=== PATIENT | female | born 1945 | race Caucasian/White ===

== ENCOUNTER → 2016-04-11 | Outpatient (CLI) | payer MEDICARE ==
--- NOTE | 2016-04-12 10:58 | MM ---
Reason for exam: screening (asymptomatic). Last mammogram was performed 1 year and 10 months ago. History: Patient is postmenopausal. Benign US breast aspiration single LT of the left breast, June 16, 2014. Took estrogen for 15 years. Physical Findings: A clinical breast exam by your physician is recommended on an annual basis and results should be correlated with mammographic findings. MG 3D Screening Mammo W/Cad Bilateral CC and MLO view(s) were taken. Prior study comparison: June 16, 2014, left breast MG diagnostic mammo LT wo CAD. March 19, 2014, bilateral MG diagnostic mammo w CAD HÉCTOR. The breast tissue is heterogeneously dense. This may lower the sensitivity of mammography. No significant changes when compared with prior studies. ASSESSMENT: Negative, BI-RAD 1 RECOMMENDATION: Routine screening mammogram of both breasts in 1 year.
== END | disposition home or self-care (01) ==
LOC: RADMAMWWP 11:24
PROVIDERS: ATTEND Internal Medicine
DX: Z12.31 Encounter for screening mammogram for malignant neoplasm of breast (principal)
CPT/HCPCS: 77052; 77063; G0202

== ENCOUNTER → 2019-01-15 | Outpatient (CLI) | payer MEDICARE ==
--- NOTE | 2019-01-15 13:05 | CT ---
EXAMINATION TYPE: CT wrist RT wo con DATE OF EXAM: 01/15/2019 COMPARISON: No outside images or priors are available for comparison. HISTORY: Known displaced fracture of the right ulna CT DLP: 263 mGycm Automated exposure control for dose reduction was used. Standard unenhanced CT of the right wrist was performed in the axial plane with sagittal and coronal reconstructions. Three-D reconstructed images of the osseous structures with graded at a separate workstation for review. FINDINGS: There is an apex volar angulated, comminuted, intra-articular, impacted fracture of the distal right radius with up to 5 mm foreshortening and up to 1.3 cm dorsal displacement of the distal fracture fra gment. Intra-articular extension is seen into the radiocarpal joint at multiple locations given the c omminution. There is extensive overlying soft tissue swelling and punctate foci of subcutaneous emphy sema are also seen. There is a transversely oriented fracture of the ulnar styloid process with 1 mm of diastases of the fracture. There is no widening of the scapholunate joint. Carpal carpal interspac es are maintained. No acute fracture seen of the carpal bones. No acute fracture of the proximal meta carpals. Mild degenerative changes of the first metacarpal phalangeal joint displayed as joint space narrowing, opposing surface sclerosis and osseous proliferation. Evaluation of the ligaments and tend ons are limited on CT and further limited given lack of intravenous contrast as well as further limit ed given soft tissue swelling. IMPRESSION: 1. ACUTE, COMMINUTED, IMPACTED, APEX VOLAR ANGULATED, MULTIFOCAL INTRA-ARTICULAR FRACTURE OF THE DIST AL RIGHT RADIUS WITH MINIMAL FORESHORTENING. PUNCTATE FOCI OF SUBCUTANEOUS EMPHYSEMA ARE ALSO SEEN CO ULD BE INTRODUCED BY LACERATION, INTRAVENOUS INJECTION OR MUCH LESS LIKELY INFECTION. 2. ACUTE, TRANSVERSELY ORIENTED, MINIMALLY DIASTATIC FRACTURE OF THE ULNAR STYLOID PROCESS. 3. DIFFUSE SOFT TISSUE SWELLING OF THE RIGHT WRIST.
== END | disposition home or self-care (01) ==
LOC: RADCTMAIN 12:08
PROVIDERS: ATTEND Orthopaedic Surgery
DX: S52.571A Other intraarticular fracture of lower end of right radius, initial encounter for closed fracture (principal)

== ENCOUNTER → 2019-01-22 | Outpatient (CLI) | payer MEDICARE | END | disposition home or self-care (01) | LOC: LABPAT 14:05 | PROVIDERS: ATTEND Orthopaedic Surgery | DX: Z01.818 Encounter for other preprocedural examination (principal) | CPT/HCPCS: 93005 ==

== ENCOUNTER 2019-01-23 11:50 | Day surgery (SDC) | payer MEDICARE ==
[2019-01-21 16:34] VITALS: BMI 28.8
[~2019-01-23 11:50] MED LIST: DEXAMETHASONE SOD PHOSPHATE 10 MG/ML 1 ML VIAL IV ONE; HYDROmorphone 0.5 MG/0.5 ML SYRINGE IVP PRN; LACTATED RINGERS 1,000 ML IV SCH; LIDOCAINE 1% 20 ML VIAL (10MG/ML) FOR IV START INTRADERMA PRN; MIDAZOLAM 2 MG/2 ML VIAL IV PRN; ONDANSETRON 4 MG/2 ML VIAL IVP ONE; SCOPOLAMINE 1.5MG/72HR PATCH TRANSDERM ONE
[2019-01-23 13:20] LABS: Glucose,Whole Blood 113 mg/dL (75-99)
[2019-01-23 13:21] VITALS: TEMP 98.8
[2019-01-23] MEDS ORDERED: MIDAZOLAM 2 MG/2 ML VIAL IVP ONE (14:02)
--- NOTE | 2019-01-23 15:32 | P.ANPRN ---
Procedure Note - Anesthesia - Nerve Block Performed Right Supraclavicular Single Time Out Performed: Yes Date of Procedure: 01/23/19 Procedure Start Time: 14:01 Procedure Stop Time: 14:08 Location of Patient Procedure: PreOp Indication: Acute Post-Operative Pain, Requested by Surgeon Sedation Type: Sedate with meaningful contact maintained Preparation: Sterile Prep Position: Supine Needle Types: Pajunk Needle Gauge: 21 Ultrasound used to visualize needle placement: Yes Ultrasound used to observe medication spread: Yes Blood Aspirated: No Pain Paresthesia on Injection Noted: No Resistance on Injection: Normal Image Stored and Saved: Yes Events: Uneventful and Well Tolerated (ropi .5% 25cc plus dexamethasone 4mg)
[2019-01-23] MEDS ORDERED: MIDAZOLAM 2 MG/2 ML VIAL ONE (16:20)
[2019-01-23] MEDS ORDERED: LIDOCAINE 1% INJ 10MG/ML (20 ML MDV) ONE (16:20)
[2019-01-23] MEDS ORDERED: DEXAMETHASONE SOD PHOSPHATE 4 MG/ML 1 ML VIAL ONE (16:20)
[2019-01-23] MEDS ORDERED: SUCCINYLCHOLINE CHLORIDE 100 MG/5 ML SYR IV ONE (16:20)
[2019-01-23] MEDS ORDERED: PROPOFOL 10 MG/ML 20 ML VIAL IV ONE (16:20)
[2019-01-23] MEDS ORDERED: fentaNYL (PF) 50 MCG/ML 2 ML AMP ONE (16:20)
[2019-01-23] MEDS ORDERED: LIDOCAINE 1%-EPI 1:100,000 20 ML VIAL SQ ONE ×2 (17:29→18:20)
[2019-01-23] MEDS ORDERED: ROPIVACAINE 5MG/ML 20ML VIAL MISCELLANE ONE ×2 (17:29→18:20)
[2019-01-23] MEDS ORDERED: LACTATED RINGERS 1,000 ML IV ONE (18:21)
[2019-01-23 19:00] LABS: Glucose,Whole Blood 171 mg/dL (75-99)
[2019-01-23 19:17] VITALS: RESP 16
[2019-01-23] MEDS ORDERED: HYDROcodone/APAP 5-325MG 1 EACH TAB PO ONE (19:20)
[2019-01-23 19:41] VITALS: BP 165/85; PULSE 75
--- NOTE | 2019-01-24 07:18 | XR ---
Fluoroscopy History: Fracture Fracture. Hardware placement. RT wrist. 6 IM scanned. 70.4 sec FL.
--- NOTE | 2019-01-26 16:23 | P.OP ---
Date of Procedure: 01/23/19 Preoperative Diagnosis: Displaced, comminuted intra-articular right distal radius fracture Postoperative Diagnosis: Displaced, comminuted intra-articular right distal radius fracture Procedure(s) Performed: Open reduction and internal fixation of comminuted, intra-articular right distal radius fracture (greater than 3 parts) Implants: Arthrex dorsal spanning distal radius plate and cortical screws Anesthesia: GETA, regional, local Surgeon: Emily Swift Estimated Blood Loss (ml): 5 Condition: stable Disposition: PACU Indications for Procedure: The patient is a very pleasant 73-year-old female who sustained a complex, comminuted intra-articular right distal radius fracture after mechanical fall. A CT scan was performed which showed substantial comminution with very little subchondral bone to support direct fragment fixation. Treatment options (and associated risks and benefits) were discussed in the office. Surgical treatment was recommended, specifically in the form of bridge plating. We discussed in detail the risk of of tendon injury, adhesions and loss of motion as well as the need for a secondary surgery for hardware removal and possible lysis of adhesions. She expressed understanding and willingness to accept these risks and wished to proceed with surgery. In preop, the patient denied any additional questions or concerns. Consent forms were signed. The operative site was confirmed and marked. Description of Procedure: The patient was administered a regional nerve block by the anesthesia team and then brought to the operating suite. The patient was positioned supine with the operative limb on an arm board. All bony prominences were well-padded. General anesthesia was administered uneventfully. Prophylactic IV antibiotics were administered. A tourniquet was placed on the right arm, which was then prepped and draped in standard, sterile fashion. A timeout was performed, confirming patient identifiers, the operative side, the site and the procedure to be performed. All team members expressed agreement. The fracture was initially evaluated with intraoperative fluoroscopy. Multiple fracture fragments were again noted with fracture lines extending into the DRUJ and radiocarpal joints. Manual reduction maneuver was performed utilizing combination of axial traction, ulnar deviation and palmar translation. Good initial alignment was obtained. The amount of subchondral bone still felt to be inadequate to permit direct fragment fixation and the decision was made to proceed with dorsal spanning fixation. The plate was positioned on the skin and used as a template to emily the proximal and distal incision sites. The limb was exsanguinated with an Esmarch and the tourniquet was inflated. A longitudinal incision was made between the second and third metacarpal shafts. Blunt spreading dissection was used. Small superficial sensory branches were identified, mobilized and protected. The extensor tendons were mobilized to expose the dorsal surface of the second metacarpal shaft. A second longitudinal incision was made on the dorsal aspect of the distal forearm. Spreading dissection was utilized. A branch of the superficial radial sensory nerve was identified, mobilized and protected. The interval between the brachioradialis and extensor carpi radialis longus tendon was developed to expose the radial shaft. A [place] elevator was inserted through the distal wound and passed deep to the extensor tendons, creating a path for the plate. The dorsal comminution and some residual extension deformity made passing this across the fracture site difficult. The reduction maneuver was repeated. With the fracture held reduced, a 0.062 K wire was inserted percutaneously into the radial styloid and driven across the fracture site. Wire position and fracture reduction were confirmed on imaging. The [place] was again inserted and passed easily over the dorsal capsule and across the fracture site to the dorsal radial shaft. The plate was inserted distally and passed in a similar fashion. Passive flexion and extension of the thumb and fingers showed no tethering or restriction of tendon gliding. The plate was clamped to the radius proximally. Distally, the plate was placed over the second metacarpal shaft. Position was confirmed on imaging. A cortical screw was drilled, measured and inserted to secure the plate to the metacarpal. Some residual extension deformity remained. The percutaneous K wire was backed out and the fracture was re-reduced, improving both radial inclination and volar tilt. The wire was readvanced for provisional fixation. Plate position and fracture reduction were again confirmed on imaging. Three cortical screws were drilled, measured and inserted to secure the plate to the radial shaft. Two additional screws were drilled, measured and inserted to further secure the plate to the metacarpal. Final x-rays were obtained which revealed satisfactory reduction of the fracture. The wrist was then stressed under live fluoroscopy - the fixation construct showed excellent stability with no appreciable motion of the fracture fragments. The tourniquet was released after 62 minutes at 250 mmHg. Good hemostasis was obtained with held pressure. The wound was thoroughly irrigated with normal saline. The periosteum was repaired over the plate proximally with interrupted Vicryl sutures. The subcutaneous tissues of the proximal incision were reapproximated with interrupted 3-0 Vicryl sutures. The incision was closed with a running 4-0 nylon suture. The incision in the hand was closed with a running 5-0 nylon suture. Local anesthetic with epinephrine was injected into the perioperative subcutaneous tissues for adjunctive postoperative pain control and hemostasis. A soft, sterile dressing was applied. All sponge, needle and instr ument counts were correct at the end of the case. The patient tolerated the procedure well and was taken to the recovery room in stable condition.
== END 2019-01-23 19:58 | disposition home or self-care (01) ==
LOC: OR 11:50
PROVIDERS: ATTEND Orthopaedic Surgery
DX: S52.571A Other intraarticular fracture of lower end of right radius, initial encounter for closed fracture (principal); W10.9XXA Fall (on) (from) unspecified stairs and steps, initial encounter; M19.90 Unspecified osteoarthritis, unspecified site; I10 Essential (primary) hypertension; K21.9 Gastro-esophageal reflux disease without esophagitis; G25.81 Restless legs syndrome; E11.9 Type 2 diabetes mellitus without complications; H91.90 Unspecified hearing loss, unspecified ear; J45.909 Unspecified asthma, uncomplicated; Z87.891 Personal history of nicotine dependence; Z97.3 Presence of spectacles and contact lenses; Z97.2 Presence of dental prosthetic device (complete) (partial); Z83.3 Family history of diabetes mellitus; Z82.49 Family history of ischemic heart disease and other diseases of the circulatory system; Z90.710 Acquired absence of both cervix and uterus; Z79.84 Long term (current) use of oral hypoglycemic drugs; Z79.891 Long term (current) use of opiate analgesic; Z79.899 Other long term (current) drug therapy; Z88.1 Allergy status to other antibiotic agents; Z88.5 Allergy status to narcotic agent; Z88.8 Allergy status to other drugs, medicaments and biological substances
CPT/HCPCS: 25609; 64415; 76942; 73100; C1713; J2250; J1100 ×2; J0690; J2405; J2001; J3010; J0330; J2704; J2795; 64413

== ENCOUNTER → 2019-03-11 | Outpatient (CLI) | payer MEDICARE ==
--- NOTE | 2019-03-12 09:08 | MM ---
Reason for exam: screening (asymptomatic). Last mammogram was performed 2 years and 11 months ago. History: Patient is postmenopausal. Benign US breast aspiration single LT of the left breast, June 16, 2014. Took estrogen for 15 years. Physical Findings: A clinical breast exam by your physician is recommended on an annual basis and results should be correlated with mammographic findings. MG 3D Screening Mammo W/Cad Bilateral CC and MLO view(s) were taken. Prior study comparison: April 11, 2016, bilateral MG 3d screening mammo w/cad. June 16, 2014, left breast MG diagnostic mammo LT wo CAD. The breast tissue is heterogeneously dense. This may lower the sensitivity of mammography. Benign appearing bilateral calcifications. Previous mammotome biopsy in the left breast. No significant changes when compared with prior studies. ASSESSMENT: Benign, BI-RAD 2 RECOMMENDATION: Routine screening mammogram of both breasts in 1 year.
== END | disposition home or self-care (01) ==
LOC: RADMAMWWP 12:38
PROVIDERS: ATTEND Internal Medicine
DX: Z12.31 Encounter for screening mammogram for malignant neoplasm of breast (principal)
CPT/HCPCS: 77063; 77067

== ENCOUNTER → 2019-03-14 | Outpatient (CLI) | payer MEDICARE ==
--- NOTE | 2019-03-14 15:44 | CT ---
EXAMINATION TYPE: CT wrist RT wo con DATE OF EXAM: 03/14/2019 COMPARISON: Prior CT wrist 01/15/2019 HISTORY: Rt wrist pain, post op complication CT DLP: 185.1 mGycm Automated exposure control for dose reduction was used. Helical imaging through the wrist, coronal an d sagittal reconstructions. FINDINGS: Comminuted distal radial fracture with displaced intra-articular fragments again noted. Nonunion of u lnar styloid fracture which is also displaced. Underlying osteoarthritic changes are present. There i s posterior fixation bracket in place, screws within the second metacarpal are not associated with th e posterior bracket. The proximal screws within the radius are in place. Screw tracts are noted withi n the second metacarpal. There is an overlying splint. There is soft tissue swelling present. Impression: DISTAL SCREWS ARE NOT WITHIN THE POSTERIOR FIXATION BRACKET.
== END | disposition home or self-care (01) ==
LOC: RADCTMAIN 13:12
PROVIDERS: ATTEND Orthopaedic Surgery
DX: S52.571D Other intraarticular fracture of lower end of right radius, subsequent encounter for closed fracture with routine healing (principal); S52.611D Displaced fracture of right ulna styloid process, subsequent encounter for closed fracture with routine healing; T81.30XA Disruption of wound, unspecified, initial encounter; Z48.89 Encounter for other specified surgical aftercare; Z98.890 Other specified postprocedural states

== ENCOUNTER 2019-03-26 05:43 | Day surgery (SDC) | payer MEDICARE ==
[2019-03-25 08:40] VITALS: BMI 28.7
[~2019-03-26 05:43] MED LIST changes: -MIDAZOLAM 2 MG/2 ML VIAL IV PRN; -SCOPOLAMINE 1.5MG/72HR PATCH TRANSDERM ONE
[2019-03-26] MEDS ORDERED: LACTATED RINGERS 1,000 ML IV ONE ×2 (06:05→09:26)
[2019-03-26 06:14] LABS: Glucose,Whole Blood 110 mg/dL (75-99)
[2019-03-26] MEDS ORDERED: LIDOCAINE 1%-EPI 1:100,000 20 ML VIAL SQ ONE ×3 (07:32→08:01)
[2019-03-26] MEDS ORDERED: ROPIVACAINE 5 MG/ML 30 ML VIAL MISCELLANE ONE ×3 (07:32→08:01)
[2019-03-26] MEDS ORDERED: SUCCINYLCHOLINE CHLORIDE 100 MG/5 ML SYR IV ONE (07:38)
[2019-03-26] MEDS ORDERED: LIDOCAINE 1% INJ 10MG/ML (20 ML MDV) ONE (07:38)
[2019-03-26] MEDS ORDERED: MIDAZOLAM 2 MG/2 ML VIAL ONE (07:38)
[2019-03-26] MEDS ORDERED: ePHEDrine SULFATE/0.9% NACL/PF 50 MG/5 ML SYRINGE IV ONE (07:38)
[2019-03-26] MEDS ORDERED: fentaNYL (PF) 50 MCG/ML 2 ML AMP ONE (07:38)
[2019-03-26] MEDS ORDERED: PROPOFOL 10 MG/ML 20 ML VIAL IV ONE (07:38)
--- NOTE | 2019-03-26 09:50 | FL ---
EXAMINATION TYPE: FL guidance operating room, XR wrist limited RT DATE OF EXAM: 03/26/2019 CLINICAL HISTORY: Right wrist fracture. TECHNIQUE: Fluoroscopy. Limited intraoperative views right wrist. COMPARISON: Recent CT March 14, 2019. FINDINGS: Fluoroscopic guidance was provided during hardware removal procedure performed by Dr. Chon munoz. A total of 0.5 minute of fluoroscopic time was utilized during the procedure and 7 spot intr aoperative images are provided which show interval removal of long segment fixating hardware. IMPRESSION: As Above.
[2019-03-26 10:08] VITALS: TEMP 98
[2019-03-26 10:20] LABS: Glucose,Whole Blood 190 mg/dL (75-99)
[2019-03-26 11:17] VITALS: BP 143/72; PULSE 92; RESP 16
--- NOTE | 2019-03-27 15:27 | P.OP ---
Date of Procedure: 03/26/19 Preoperative Diagnosis: 1. Hardware failure status post open reduction and internal fixation of comminuted right distal radius fracture with dorsal spanning plate Postoperative Diagnosis: 1. Hardware failure status post open reduction and internal fixation of comminuted right distal radius fracture with dorsal spanning plate 2. Partial attritional ruptures of the right extensor indicis proprius (EIP) and index finger extensor digitorum communis (EDC) tendons Procedure(s) Performed: 1. Exam under anesthesia and manual application of joint stress for radiography by physician right wrist 2. Removal of hardware - right hand and wrist 3. Repair of right extensor indicis proprius (EIP) and index finger extensor digitorum communis (EDC) tendons - distal Zone 6 4. Application of short arm splint by physician Anesthesia: NIKITA, local Surgeon: Vinay Swift Estimated Blood Loss (ml): 5 Pathology: other (Wound culture swab) Condition: stable Disposition: PACU Indications for Procedure: The patient is a very pleasant 73-year-old female who previously underwent dorsal spanning plate fixation for a comminuted right distal radius fracture. Follow-up x-rays in the office demonstrated failure of fixation: the distal screws holding the plate to the second metacarpal head completely pulled out. In preop, the patient expressed that she thought the hardware failure was likely the result of overuse, stating: Its my own fault: I probably used it too much. Treatment options (and associated risks and benefits) were discussed in the office. Surgical treatment was recommended. She expressed understanding, acceptance of the risks and wished to proceed with surgery. Consent forms were signed. The operative site was confirmed and marked. Description of Procedure: The patient was brought to the operative suite and positioned supine with the operative limb on a hand table. Prophylactic antibiotics were administered. A tourniquet was applied to the right upper extremity, which was then prepped and draped in standard, sterile fashion. A time-out was performed, confirming patient identifiers, the operative side, site and procedure to be performed: all team members expressed agreement. The wrist was examined with intraoperative fluoroscopy. All three distal screws were sitting loosen in the soft tissues. The proximal screws were still fixed to the bone through the plate. The wrist was taken through a passive range of motion under live fluoroscopy: No gross motion was identified at the fracture site. The decision was made to proceed with hardware removal. The limb was exsanguinated with an Esmarch and the tourniquet was inflated. The previous incisions were utilized. The skin was sharply incised along the dorsal forearm. Spreading dissection was used to expose the dorsal radius, taking care to protect adjacent vessels and sensory branches. The plate was identified by palpation. The fibrous membrane covering the plate was incised to expose the screw heads. All three screws were still well-fixed and were removed without difficulty. The incision in the hand had a keratotic eschar along its distal third. This was sharply excised in elliptical fashion, removing a 4 mm x 10 mm full- thickness segment of skin. The subcutaneous tissues were spread. The index EDC and EIP tendons were identified and mobilized. The showed fraying and attritional ruptures from hardware irritation. These were later repaired. There was abundant thick, fibrous tissue over the second metacarpal, consistent with chronic irritation. The metacarpal shaft was identified by palpation. The overlying tissue was incised to expose the shaft. A small pocket of thin, markham fluid was encountered, likely reactive inflammatory transudate from the irritating hardware. This did not appear infected but a culture swab was obtain ed. All three distal screws were encased in thick fibrous tissue. These were localized with fluoroscopy, dissected free and removed without difficulty. An elevator was used to carefully release adhesions between the plate and the bone, proximally and distally. The plate was removed through the proximal wound without difficulty. Curettes and rongeurs were used to resect fibrous scar tissue from the dorsal surface of the radius and second metacarpal. Both wounds were copiously irrigated with normal saline. Dynamic fluoroscopic examination was repeated after hardware removal. Again, no gross motion of the fracture fragments was appreciated. However, subtle motion was noted at the volar rim when axial load and volar translation/flexion stress were applied. The distal radius was deemed stable and sufficiently healed - no further fixation was deemed necessary. Attention was turned to the tendon ruptures. The radial side of the extensor expansion was released to facilitate exposure. The radial side of EDC tendon showed a tear involving 30% of the tendon circumference with loss of tendon substance over a length of about 2 cm. This was not felt to be repairable. The EIP tendon showed substantial partial- thickness undersurface fraying. Both tendons showed good overall strength: The index finger passively extended when traction was applied to each tendon using a Ragnell retractor. The frayed edges of each tendon were sharply resected. A longitudinal split along the radial side of the EDC tendon was repaired in a [id number] fashion, using multiple interrupted [id number] sutures of 6-0 nylon. The loose flaps on the undersurface of the EIP tendon were repaired with horizontal mattress sutures of 6-0 nylon. This was reinforced along both sides with a running, locked 6-0 nylon stitch. The split in the extensor expansion was repaired with 3-0 Vicryl suture. Passive flexion and extension of the digit showed smooth gliding of both tendons without catching or loosening at the repair sites. The tourniquet was released after 74 minutes at 250 mmHg. Hemostasis was obtained with manual pressure and electrocautery. The wounds were thoroughly irrigated with normal saline. The subcutaneous tissues on the proximal wound were reapproximated with interrupted 3-0 Vicryl sutures. The incisions were closed with 4-0 nylon suture. Local anesthetic with epinephrine was injected for adjunctive postoperative analgesia and hemostasis. A soft, sterile dressing was applied. To protect both the healing fracture and tendon repairs, a short arm volar plaster splint was applied, with the wrist in 20 of extension and the MCP and PIP joints free. All sponge, needle and instrument counts were correct at the end of the case. The patient tolerated the procedure well and was taken to the recovery room in stable condition.
== END 2019-03-26 11:46 | disposition home or self-care (01) ==
LOC: OR 05:43
PROVIDERS: ATTEND Orthopaedic Surgery
DX: T84.428A Displacement of other internal orthopedic devices, implants and grafts, initial encounter (principal); T84.84XD Pain due to internal orthopedic prosthetic devices, implants and grafts, subsequent encounter; S52.571D Other intraarticular fracture of lower end of right radius, subsequent encounter for closed fracture with routine healing; S52.611D Displaced fracture of right ulna styloid process, subsequent encounter for closed fracture with routine healing; S56.511A Strain of other extensor muscle, fascia and tendon at forearm level, right arm, initial encounter; M19.90 Unspecified osteoarthritis, unspecified site; I10 Essential (primary) hypertension; H91.90 Unspecified hearing loss, unspecified ear; J45.909 Unspecified asthma, uncomplicated; K21.9 Gastro-esophageal reflux disease without esophagitis; E11.9 Type 2 diabetes mellitus without complications; G43.909 Migraine, unspecified, not intractable, without status migrainosus; G25.81 Restless legs syndrome; Z88.5 Allergy status to narcotic agent; Z88.1 Allergy status to other antibiotic agents; Z88.8 Allergy status to other drugs, medicaments and biological substances; Z79.84 Long term (current) use of oral hypoglycemic drugs; Z79.891 Long term (current) use of opiate analgesic; Z79.2 Long term (current) use of antibiotics; Z79.899 Other long term (current) drug therapy; Z87.891 Personal history of nicotine dependence; Z96.649 Presence of unspecified artificial hip joint; Z86.011 Personal history of benign neoplasm of the brain; X58.XXXA Exposure to other specified factors, initial encounter; X58.XXXD Exposure to other specified factors, subsequent encounter; Y83.1 Surgical operation with implant of artificial internal device as the cause of abnormal reaction of the patient, or of later complication, without mention of misadventure at the time of the procedure
CPT/HCPCS: 87070; 87205; 87075; 73100; 20680; 25270 ×2; J2250; J1100; J0690; J2405; J2001; J3010; J2795; J0330; J2704

== ENCOUNTER → 2019-04-22 | Outpatient (CLI) | payer MEDICARE ==
--- NOTE | 2019-04-22 12:53 | US ---
EXAMINATION TYPE: US venous doppler duplex LE LT DATE OF EXAM: 04/22/2019 12:39 PM COMPARISON: NONE CLINICAL HISTORY: I80.9 PHLEBITIS AND THROMBOPHLEBITIS OF SITE. Bump left lower lateral leg. SIDE PERFORMED: Left TECHNIQUE: The lower extremity deep venous system is examined utilizing real time linear array sonog christiano with graded compression, doppler sonography and color-flow sonography. VESSELS IMAGED: External Iliac Vein (EIV) Common Femoral Vein Deep Femoral Vein Greater Saphenous Vein * Femoral Vein Popliteal Vein Small Saphenous Vein * Proximal Calf Veins (* superficial vessels) Left Leg: Negative for DVT Scanned directly over palpable, left lateral lower leg, no definite abnormality noted. IMPRESSION: No evidence for DVT
== END ==
LOC: RADUSWWP 12:14
PROVIDERS: ATTEND Orthopaedic Surgery
DX: M79.662 Pain in left lower leg (principal)

== ENCOUNTER → 2021-08-18 | Outpatient (CLI) | payer MEDICARE | END | disposition home or self-care (01) | LOC: RADECHMAIN 11:42 | PROVIDERS: ATTEND Psychiatry & Neurology Neurology | DX: Z53.9 Procedure and treatment not carried out, unspecified reason (principal) ==